=== PATIENT | male | born 1940 | race Caucasian/White ===

== ENCOUNTER 2021-03-07 10:07 | Outpatient (CLI) | payer MEDICARE, OTHER | END 2021-03-07 10:08 | disposition home or self-care (01) | LOC: CSHRAD 10:07 | PROVIDERS: ATTEND Internal Medicine Gastroenterology | DX: J69.0 Pneumonitis due to inhalation of food and vomit (principal) | CPT/HCPCS: 74230 ==

== ENCOUNTER 2023-11-14 10:00 | Outpatient (CLI) | payer MEDICARE, OTHER ==
[2023-11-14 12:04] LABS: #Basophils 0.05 10x3/uL (0.0-0.2); #Monocytes 0.43 10x3/uL (0.0-1.1); #Neutrophils 2.18 10x3/uL (1.5-8.4); %Basophils 1.1 % (0.0-2.0); %Eosinophils 6.7 % (0.0-6.0); %Monocytes 9.6 % (0.0-10.0); %Neutrophils 48.4 % (40.0-75.0); Mean Corpuscular HGB CONC 34.1 g/dL (32.0-36.0); Mean Corpuscular Hemoglobin 32.3 pg (27.0-33.0); Mean Corpuscular Volume 94.8 fL (81.2-95.1); Mean Platelet Volume 10.7 fL (7.4-10.4); Platelet Count 165 10x3/uL (150-450); RBC Distribution Width 14.3 % (11.5-14.5); Red Blood Cell (RBC) Count 4.64 10x6/uL (4.32-5.72); White Blood Cell (WBC) Count 4.5 10x3/uL (3.5-10.5)
[2023-11-14 12:46] LABS: Anion Gap 14 mmol/L (10-20); BUN (Urea Nitrogen) 20 mg/dL (8.4-25.7); Calc. Creatinine Clearance 0 mL/min (70-130); Calcium 10.1 mg/dL (7.8-10.44); Carbon Dioxide 30 mmol/L (23-31); Chloride 102 mmol/L (98-107); Estimated GFR 84; Glucose 98 mg/dL (83-110); Potassium 4.8 mmol/L (3.5-5.1); Sodium 141 mmol/L (136-145)
== END 2023-11-14 10:01 | disposition home or self-care (01) ==
LOC: CSHLAB 10:00
PROVIDERS: ATTEND Surgery
DX: Z01.818 Encounter for other preprocedural examination (principal); K43.9 Ventral hernia without obstruction or gangrene
CPT/HCPCS: 80048; 85025

== ENCOUNTER 2023-11-21 10:57 | Day surgery (SDC) | payer MEDICARE, OTHER ==
[2023-11-14 13:35] VITALS: BMI 23.7
[2023-11-21] MEDS ORDERED: EPINEPHrine 1 MG/ML VIAL ONE (11:15)
[2023-11-21] MEDS ORDERED: Bupivacaine 0.25% HCL 30 ML VIAL ONE (11:15)
[2023-11-21] MEDS ORDERED: fentaNYL 50 mcg/mL 1 mL Vial ONE (11:23)
[2023-11-21] MEDS ORDERED: PROPOFOL 20 ML ONE (11:24)
[2023-11-21] MEDS ORDERED: Lidocaine 1% PF 5 ML VIAL ONE (11:24)
[2023-11-21] MEDS ORDERED: CEFAZOLIN 2 GM VIAL ONE (11:32)
[2023-11-21] MEDS ORDERED: NOREPINEPHRINE 8 MG/250 ML-D5W 0 ML ONE (11:42)
[2023-11-21] MEDS ORDERED: SUGAMMADEX SODIUM 200 MG/2 ML VIAL ONE (11:42)
[2023-11-21] MEDS ORDERED: Rocuronium Bromide 10 MG/ML (10ML VIAL) ONE (11:43)
[2023-11-21] MEDS ORDERED: Vasopressin 20 UNITS/ML VIAL ONE (11:55)
[2023-11-21] MEDS ORDERED: ePHEDrine Sulfate 50 MG/10 ML VIAL ONE (11:57)
[2023-11-21] MEDS ORDERED: Ondansetron PF 4 MG/2 ML Vial ONE (12:03)
== END 2023-11-21 13:50 | disposition home or self-care (01) ==
LOC: CSHSDC 10:57
PROVIDERS: ATTEND Surgery
PROC: 0WQF0ZZ Repair Abdominal Wall, Open Approach (ICD-10-PCS; principal; 2023-11-21)
DX: K42.9 Umbilical hernia without obstruction or gangrene (principal); E78.5 Hyperlipidemia, unspecified; I11.0 Hypertensive heart disease with heart failure; I50.33 Acute on chronic diastolic (congestive) heart failure; I27.20 Pulmonary hypertension, unspecified; N40.0 Benign prostatic hyperplasia without lower urinary tract symptoms; Z79.899 Other long term (current) drug therapy; Z88.8 Allergy status to other drugs, medicaments and biological substances; Z91.041 Radiographic dye allergy status; Z98.890 Other specified postprocedural states
CPT/HCPCS: 49591; C1781; J0171; J0665; J2405; J2704; J3010